=== PATIENT | male | born 1965 | race Hispanic/Latino ===

== ENCOUNTER 2020-10-21 18:33 | Inpatient (IN) | payer OTHER ==
[~2020-10-21] VITALS: Ht 170.2 cm; Wt 84.1 kg
[~2020-10-21 18:33] MED LIST: ACET1TAB12 PO; GABA-529 PO
[2020-10-21 19:19] LABS: ABG BASE EXCESS -3.8 mmol/L (-2.0-3.0); ABG HCO3 18.6 mmol/L (21.0-28.0); ABG OXYGEN SATURATION 89.8 % (95.0-99.0); ABG PCO2 27 mmHg (35-48)
[2020-10-21 19:24] LABS: BASOPHILS % (AUTO) 0.3 % (0.0-5.0); EOSINOPHILS % (AUTO) 10.7 % (0.0-8.0); LYMPHOCYTES % (AUTO) 7.4 % (21.0-51.0); MEAN CORPUSCULAR HGB CONC 31.9 g/dL (32.0-36.0); MEAN CORPUSCULAR VOLUME 97.2 fL (79-99); NEUTROPHILS % (AUTO) 73.9 % (40.0-77.0); PLATELET COUNT (AUTO) 436 K/uL (130-400); RED BLOOD CELL COUNT(AUTO) 1.42 MIL/uL (4.50-6.20); WHITE BLOOD COUNT (AUTO) 11.7 K/uL (4.8-10.8)
[2020-10-21 19:27] LABS: CREATININE 5.1 mg/dL (0.5-1.5); POTASSIUM 4.1 mmol/L (3.5-5.1)
[2020-10-21 19:32] LABS: BILIRUBIN,TOTAL 0.8 mg/dL (0.2-1.0); MAGNESIUM 2.5 mg/dL (1.80-2.40); TOTAL PROTEIN, SERUM 7.6 g/dL (6.0-8.3)
[2020-10-21 20:00] LABS: CREATINE KINASE, TOTAL 17 U/L (21-232); MYOGLOBIN 92 ng/mL (10-92); TROPONIN I < 0.04 ng/mL (0.00-0.06)
[2020-10-21 20:06] LABS: B-TYPE NATRIURETIC PEPTIDE 328 pg/mL (0-100)
[2020-10-21 20:07] LABS: HEMATOCRIT 13.8 % (42-54)
[2020-10-21 20:25] LABS: INR 1.12 (0.85-1.15); PROTHROMBIN TIME 11.9 SEC (9.6-11.6)
[2020-10-21 20:27] LABS: PARTIAL THROMBOPLASTIN TIME 30.3 SEC (26.3-35.5)
[2020-10-21] MEDS ORDERED: ZOSYN 3.375GM+NS 50ML 50 ML IV ONE (21:08)
[2020-10-21] MEDS ORDERED: VANCOMYCIN 1GM+NS 250ML 250 ML IV ONE (21:08)
[2020-10-21 21:57] LABS: APPEARANCE,URINE Clear (CLEAR); BILIRUBIN,URINE Negative (NEGATIVE); COLOR,URINE Yellow (YELLOW); GLUCOSE, URINE (UA) Negative (NEGATIVE); KETONES,URINE Negative (NEGATIVE); LEUKOCYTE ESTERASE ,URINE Trace (NEGATIVE); NITRATE,URINE Negative (NEGATIVE); OCCULT BLOOD,URINE Large (NEGATIVE); PROTEIN,URINE 300 mg/dL (NEGATIVE); UROBILINOGEN,URINE 0.2 mg/dL (0.2-1.0)
[2020-10-21 22:05] LABS: BACTERIA,URINE Few /HPF (None Seen)
[2020-10-21 22:06] LABS: SQUAMOUS EPITHELIAL CELL,UR None Seen /HPF (0-2)
[2020-10-21] MEDS ORDERED: SODIUM CHLORIDE 0.9% 250 ML IV ONE (23:26)
[2020-10-22] MEDS ORDERED: ACETAMINOPHEN 325 MG TAB ONE (00:33)
[2020-10-22] MEDS ORDERED: DOXYCYCLINE HYCLATE 100 MG TABLET PO ONE ×2 (03:17→18:19)
[2020-10-22] MEDS ORDERED: CEFTRIAXONE SODIUM 1 GM ONE (03:17)
[2020-10-22] MEDS ORDERED: ONDANSETRON ODT 4 MG TAB PO PRN (05:45)
[2020-10-22] MEDS: PANTOPRAZOLE SODIUM 40 MG TABLET.DR PO SCH ×2 (09:00→21:00)
[2020-10-22] MEDS: DOXYCYCLINE HYCLATE 100 MG TABLET PO SCH ×2 (09:00→21:00)
[2020-10-22 09:02] LABS: BASOPHILS % (AUTO) 0.3 % (0.0-5.0); EOSINOPHILS % (AUTO) 11.7 % (0.0-8.0); HEMATOCRIT 21.7 % (42-54); LYMPHOCYTES % (AUTO) 6.8 % (21.0-51.0); MEAN CORPUSCULAR HEMOGLOBIN 29.5 pg (27.0-33.0); MEAN CORPUSCULAR HGB CONC 32.7 g/dL (32.0-36.0); MONOCYTES % (AUTO) 6.1 % (3.0-13.0); NEUTROPHILS % (AUTO) 74.7 % (40.0-77.0); PLATELET COUNT (AUTO) 384 K/uL (130-400); RED BLOOD CELL COUNT(AUTO) 2.41 MIL/uL (4.50-6.20); RED CELL DISTRIBUTION WIDTH 16.2 % (11.0-15.5); WHITE BLOOD COUNT (AUTO) 11.5 K/uL (4.8-10.8)
[2020-10-22 09:58] LABS: ALBUMIN 2.8 g/dL (3.5-5.0); BILIRUBIN,TOTAL 0.9 mg/dL (0.2-1.0); CREATININE 4.9 mg/dL (0.5-1.5); MAGNESIUM 2.1 mg/dL (1.80-2.40); POTASSIUM 4.1 mmol/L (3.5-5.1); TOTAL PROTEIN, SERUM 7.2 g/dL (6.0-8.3)
[2020-10-22] MEDS ORDERED: PANTOPRAZOLE SODIUM 40 MG TABLET.DR ONE (10:01)
[2020-10-22 10:58] LABS: HEMOGLOBIN A1C 4.6 % (4.0-6.0)
[2020-10-22] MEDS ORDERED: VITA0.4T5 PO (14:09)
[2020-10-22] MEDS ORDERED: APIX2.5T PO (14:09)
[2020-10-22] MEDS ORDERED: SEVE800T27 PO (14:09)
[2020-10-22] MEDS ORDERED: MIDO5TAB4 PO (14:09)
[2020-10-22] MEDS ORDERED: CHOL500051 PO (14:09)
[2020-10-22] MEDS ORDERED: FERS325 PO (14:09)
[2020-10-22 18:29] LABS: HEMATOCRIT 20.7 % (42-54)
[2020-10-22] MEDS ORDERED: SODIUM CHLORIDE 0.9% 250 ML IV ONE (22:41)
[2020-10-23] MEDS ORDERED: ONDANSETRON HCL 4 MG/2 ML VIAL IVP PRN (02:15)
[2020-10-23] MEDS: CEFTRIAXONE SODIUM 1 GM IVP SCH (03:00)
[2020-10-23 04:00] LABS: HEMATOCRIT 21.5 % (42-54)
[2020-10-23] MEDS ORDERED: CEFTRIAXONE SODIUM 1 GM ONE ×2 (04:24→11:58)
[2020-10-23] MEDS ORDERED: DOXYCYCLINE HYCLATE 100 MG TABLET PO ONE (04:24)
[2020-10-23] MEDS ORDERED: PANTOPRAZOLE 40 MG/VIAL ONE ×3 (04:24→20:20)
[2020-10-23] MEDS: PANTOPRAZOLE SODIUM 40 MG TABLET.DR PO SCH ×2 (09:00→21:09)
[2020-10-23] MEDS: DOXYCYCLINE HYCLATE 100 MG TABLET PO SCH ×2 (09:00→21:09)
[2020-10-23 12:04] LABS: HEMATOCRIT 19.7 % (42-54)
[2020-10-23 12:59] LABS: PROTEIN,URINE RANDOM 229.8 mg/dL (0-11.9)
[2020-10-23] MEDS ORDERED: PANTOPRAZOLE SODIUM 80 MG in NS 100ML IVP SCH (14:30)
[2020-10-23] MEDS: METHYLPREDNISOLONE SOD SUCC 40MG/ML 1ML IVP SCH ×2 (15:00→21:44)
[2020-10-23] MEDS ORDERED: METHYLPREDNISOLONE SOD SUCC 40MG/ML 1ML ONE (15:01)
[2020-10-23] MEDS: IPRATROPIUM/ALBUTEROL SULFATE 3 ML SOLUTION IH SCH (18:38)
[2020-10-23 19:32] LABS: HEMATOCRIT 19.5 % (42-54)
[2020-10-23] MEDS ORDERED: DEXTROSE 5%-WATER 100 ML IV ONE (20:22)
[2020-10-23 20:40] VITALS: BP 100/59
[2020-10-23 20:45] VITALS: BP 120/66
[2020-10-23] MEDS ORDERED: LORAZEPAM 2 MG/ML 1 ML VIAL ONE (21:36)
[2020-10-23] MEDS ORDERED: LORAZEPAM 2 MG/ML 1 ML VIAL IVP ONE (21:45)
[2020-10-23 23:06] VITALS: BP 106/56
[2020-10-23 23:37] VITALS: BP 100/57
[2020-10-24 00:27] VITALS: BP 112/80
[2020-10-24] MEDS: CEFTRIAXONE SODIUM 1 GM IVP SCH (02:16)
[2020-10-24 04:03] VITALS: BP 105/60
[2020-10-24] MEDS ORDERED: LORAZEPAM 2 MG/ML 1 ML VIAL ONE (04:44)
[2020-10-24] MEDS ORDERED: LORAZEPAM 2 MG/ML 1 ML VIAL IVP PRN (05:00)
[2020-10-24] MEDS: IPRATROPIUM/ALBUTEROL SULFATE 3 ML SOLUTION IH SCH ×3 (06:58→17:12)
[2020-10-24 07:29] VITALS: BP 112/61
[2020-10-24] MEDS ORDERED: HALOPERIDOL LACTATE 5 MG/ML VIAL IM SCH (08:34)
[2020-10-24] MEDS: DOXYCYCLINE HYCLATE 100 MG TABLET PO SCH ×2 (09:59→21:34)
[2020-10-24] MEDS: PANTOPRAZOLE SODIUM 40 MG TABLET.DR PO SCH ×2 (09:59→21:34)
[2020-10-24] MEDS: METHYLPREDNISOLONE SOD SUCC 40MG/ML 1ML IVP SCH ×3 (09:59→21:34)
[2020-10-24 10:42] VITALS: BP 104/71
[2020-10-24] MEDS ORDERED: IOHEXOL-350 50ML VIAL IV ONE ×2 (10:55→11:19)
[2020-10-24] MEDS ORDERED: MIDAZOLAM HCL 1 MG/ML 2ML VIAL ONE (10:56)
[2020-10-24] MEDS ORDERED: FENTANYL CITRATE PF 50 MCG/1 ML 2ML VIAL ONE (10:56)
[2020-10-24] MEDS ORDERED: LIDOCAINE HCL 1% MDV 50ML VIAL ONE (10:56)
[2020-10-24 12:00] LABS: CREATININE 4.9 mg/dL (0.5-1.5); POTASSIUM 4.1 mmol/L (3.5-5.1)
[2020-10-24 12:09] LABS: ABG BASE EXCESS -11.6 mmol/L (-2.0-3.0); ABG HCO3 12.6 mmol/L (21.0-28.0); ABG OXYGEN SATURATION 99.3 % (95.0-99.0); ABG PCO2 25 mmHg (35-48)
[2020-10-24] MEDS ORDERED: PHARMACY COMMUNICATION MISC STA (13:30)
[2020-10-24] MEDS ORDERED: COMPOUND IV REFRIGERATED 1 EACH IVSOLN MISC PRN (14:00)
[2020-10-24] MEDS: SODIUM BICARBONATE 650 MG TAB PO SCH ×2 (14:00→21:34)
[2020-10-24] MEDS ORDERED: SODIUM CHLORIDE 0.9% 1000ML 1,000 ML IV ONE (14:39)
[2020-10-24 15:46] VITALS: BP 116/70
[2020-10-24] MEDS ORDERED: SODIUM BICARB 50MEQ 50ML VIAL IV SCH (15:50)
[2020-10-24] MEDS: SODIUM BICARB 50MEQ 50ML VIAL 150 MEQ in DEXTROSE 5%-WATER 1,000 ML IV SCH (15:58)
[2020-10-24 18:58] LABS: HEMATOCRIT 20.7 % (42-54)
[2020-10-24 20:00] VITALS: BP 103/61
[2020-10-24] MEDS ORDERED: SODIUM CHLORIDE 0.9% 250 ML IV ONE (23:54)
[2020-10-25] VITALS (23 sets, daily range): BP systolic 87–120; BP diastolic 44–79
[2020-10-25] MEDS: CEFTRIAXONE SODIUM 1 GM IVP SCH (03:47)
[2020-10-25] MEDS: SODIUM BICARB 50MEQ 50ML VIAL 150 MEQ in DEXTROSE 5%-WATER 1,000 ML IV SCH (05:37)
[2020-10-25 05:43] LABS: BASOPHILS % (AUTO) 0.1 % (0.0-5.0); HEMATOCRIT 23.9 % (42-54); LYMPHOCYTES % (AUTO) 1.6 % (21.0-51.0); MEAN CORPUSCULAR HEMOGLOBIN 29.1 pg (27.0-33.0); MEAN CORPUSCULAR HGB CONC 33.9 g/dL (32.0-36.0); MONOCYTES % (AUTO) 3.9 % (3.0-13.0); NEUTROPHILS % (AUTO) 93.9 % (40.0-77.0); PLATELET COUNT (AUTO) 414 K/uL (130-400); RED BLOOD CELL COUNT(AUTO) 2.78 MIL/uL (4.50-6.20); RED CELL DISTRIBUTION WIDTH 15.2 % (11.0-15.5); WHITE BLOOD COUNT (AUTO) 13.4 K/uL (4.8-10.8)
[2020-10-25 05:53] LABS: ALBUMIN 2.4 g/dL (3.5-5.0); BILIRUBIN,TOTAL 1.3 mg/dL (0.2-1.0); CREATININE 4.8 mg/dL (0.5-1.5); MAGNESIUM 2.3 mg/dL (1.80-2.40); POTASSIUM 4.1 mmol/L (3.5-5.1); TOTAL PROTEIN, SERUM 6.4 g/dL (6.0-8.3)
[2020-10-25 05:58] LABS: B-TYPE NATRIURETIC PEPTIDE 1130 pg/mL (0-100)
[2020-10-25] MEDS: IPRATROPIUM/ALBUTEROL SULFATE 3 ML SOLUTION IH SCH ×5 (06:00→23:22)
[2020-10-25] MEDS: METHYLPREDNISOLONE SOD SUCC 40MG/ML 1ML IVP SCH ×3 (06:13→22:17)
[2020-10-25 06:43] LABS: % IRON SATURATION 36.2 % (30-44)
[2020-10-25 07:27] LABS: ABG BASE EXCESS -4.7 mmol/L (-2.0-3.0); ABG HCO3 19.4 mmol/L (21.0-28.0); ABG OXYGEN SATURATION 98.9 % (95.0-99.0); ABG PCO2 34 mmHg (35-48)
[2020-10-25] MEDS: PANTOPRAZOLE SODIUM 40 MG TABLET.DR PO SCH ×2 (09:00→20:28)
[2020-10-25] MEDS: SODIUM BICARBONATE 650 MG TAB PO SCH ×3 (09:00→20:29)
[2020-10-25] MEDS: DOXYCYCLINE HYCLATE 100 MG TABLET PO SCH ×2 (09:00→20:29)
[2020-10-25] MEDS ORDERED: SODIUM CHLORIDE 0.9% 1000ML 1,000 ML IV ONE (09:32)
[2020-10-25] MEDS ORDERED: PROPOFOL 10 MG/ML 20ML VIAL IV ONE (10:22)
[2020-10-25] MEDS ORDERED: LIDOCAINE HCL 2% 20ML ONE (10:22)
[2020-10-25] MEDS ORDERED: IODIXANOL 320 MG/ML 100 ML VIAL ONE (11:54)
[2020-10-25] MEDS ORDERED: LIDOCAINE HCL 1% MDV 50ML VIAL ONE (11:55)
[2020-10-26] VITALS (7 sets, daily range): BP systolic 92–113; BP diastolic 61–71
[2020-10-26] MEDS: CEFTRIAXONE SODIUM 1 GM IVP SCH (02:15)
[2020-10-26 04:19] LABS: BASOPHILS % (AUTO) 0.1 % (0.0-5.0); HEMATOCRIT 24.8 % (42-54); LYMPHOCYTES % (AUTO) 2.7 % (21.0-51.0); MEAN CORPUSCULAR HEMOGLOBIN 29.1 pg (27.0-33.0); MEAN CORPUSCULAR HGB CONC 33.5 g/dL (32.0-36.0); MONOCYTES % (AUTO) 3.4 % (3.0-13.0); NEUTROPHILS % (AUTO) 93.3 % (40.0-77.0); PLATELET COUNT (AUTO) 403 K/uL (130-400); RED BLOOD CELL COUNT(AUTO) 2.85 MIL/uL (4.50-6.20); RED CELL DISTRIBUTION WIDTH 15.9 % (11.0-15.5)
[2020-10-26 04:37] LABS: CREATININE 4.8 mg/dL (0.5-1.5); MAGNESIUM 2.4 mg/dL (1.80-2.40); PHOSPHORUS 5.2 mg/dL (2.5-4.9)
[2020-10-26] MEDS: METHYLPREDNISOLONE SOD SUCC 40MG/ML 1ML IVP SCH ×2 (05:41→17:42)
[2020-10-26] MEDS: IPRATROPIUM/ALBUTEROL SULFATE 3 ML SOLUTION IH SCH ×3 (06:42→19:15)
[2020-10-26 07:29] LABS: CREATININE,SERUM FOR CRCL 4.8 mg/dL (0.6-1.3)
[2020-10-26 07:30] LABS: COLLECTION PERIOD,URINE 24 HR; TOTAL VOLUME 24HRS,URINE 1700 mL
[2020-10-26 07:32] LABS: TPROTEIN TIMED,URINE 125 mg/dL; TPROTEIN U,24HR CALC 2125 mg/24HR (0-165)
[2020-10-26 08:26] LABS: ABG OXYGEN SATURATION 94.6 % (95.0-99.0); ABG PCO2 32 mmHg (35-48)
[2020-10-26] MEDS: PANTOPRAZOLE SODIUM 40 MG TABLET.DR PO SCH ×2 (11:35→20:54)
[2020-10-26] MEDS: SODIUM BICARBONATE 650 MG TAB PO SCH ×3 (11:35→20:54)
[2020-10-26] MEDS: LACTULOSE 20 GM/30 ML UDCUP PO SCH (11:35)
[2020-10-26] MEDS: DOXYCYCLINE HYCLATE 100 MG TABLET PO SCH ×2 (11:35→20:54)
[2020-10-26] MEDS ORDERED: LACTULOSE 20 GM/30 ML UDCUP PO SCH (15:00)
[2020-10-26] MEDS ORDERED: PEG 3350/NA SULF,BICARB,CL/KCL 4000 ML SOLN PO SCH (16:00)
[2020-10-26] MEDS: SEVELAMER HCL 800 MG TABLET PO SCH (17:36)
[2020-10-26] MEDS: ACETAMINOPHEN 325 MG TAB PO PRN (17:45)
[2020-10-26] MEDS ORDERED: BISACODYL 5 MG TABLET.DR PO SCH (18:00)
[2020-10-26] MEDS: MIDODRINE HCL 5 MG TABLET PO SCH (20:54)
[2020-10-27] VITALS (18 sets, daily range): BP systolic 108–147; BP diastolic 45–95
[2020-10-27] MEDS: CEFTRIAXONE SODIUM 1 GM IVP SCH (03:15)
[2020-10-27 04:03] LABS: HEMATOCRIT 25.9 % (42-54); MEAN CORPUSCULAR HEMOGLOBIN 28.5 pg (27.0-33.0); MEAN CORPUSCULAR HGB CONC 32.4 g/dL (32.0-36.0); MEAN CORPUSCULAR VOLUME 87.8 fL (79-99); RED BLOOD CELL COUNT(AUTO) 2.95 MIL/uL (4.50-6.20); RED CELL DISTRIBUTION WIDTH 15.7 % (11.0-15.5); WHITE BLOOD COUNT (AUTO) 8.1 K/uL (4.8-10.8)
[2020-10-27 04:15] LABS: CREATININE 4.5 mg/dL (0.5-1.5); POTASSIUM 4.4 mmol/L (3.5-5.1)
[2020-10-27] MEDS: METHYLPREDNISOLONE SOD SUCC 40MG/ML 1ML IVP SCH ×2 (05:41→22:42)
[2020-10-27] MEDS: IPRATROPIUM/ALBUTEROL SULFATE 3 ML SOLUTION IH SCH ×3 (06:55→18:51)
[2020-10-27] MEDS: PANTOPRAZOLE SODIUM 40 MG TABLET.DR PO SCH ×2 (08:55→22:42)
[2020-10-27] MEDS: MIDODRINE HCL 5 MG TABLET PO SCH ×3 (08:55→22:42)
[2020-10-27] MEDS: DOXYCYCLINE HYCLATE 100 MG TABLET PO SCH ×2 (08:55→22:42)
[2020-10-27] MEDS: LACTULOSE 20 GM/30 ML UDCUP PO SCH (08:55)
[2020-10-27] MEDS: SEVELAMER HCL 800 MG TABLET PO SCH ×3 (08:55→17:36)
[2020-10-27] MEDS: SODIUM BICARBONATE 650 MG TAB PO SCH ×3 (08:55→22:42)
[2020-10-27] MEDS ORDERED: PROPOFOL 10 MG/ML 20ML VIAL IV ONE ×2 (13:22→13:34)
[2020-10-28 00:16] VITALS: BP 118/73
[2020-10-28] MEDS: IPRATROPIUM/ALBUTEROL SULFATE 3 ML SOLUTION IH SCH ×5 (01:36→23:58)
[2020-10-28] MEDS: CEFTRIAXONE SODIUM 1 GM IVP SCH (03:22)
[2020-10-28 04:20] VITALS: BP 111/54
[2020-10-28 08:04] VITALS: BP 114/51
[2020-10-28] MEDS: LACTULOSE 20 GM/30 ML UDCUP PO SCH (08:12)
[2020-10-28] MEDS: SEVELAMER HCL 800 MG TABLET PO SCH ×3 (08:33→16:17)
[2020-10-28] MEDS: SODIUM BICARBONATE 650 MG TAB PO SCH ×3 (08:33→22:56)
[2020-10-28] MEDS: MIDODRINE HCL 5 MG TABLET PO SCH ×3 (08:34→22:56)
[2020-10-28] MEDS: PANTOPRAZOLE SODIUM 40 MG TABLET.DR PO SCH (08:34)
[2020-10-28] MEDS: METHYLPREDNISOLONE SOD SUCC 40MG/ML 1ML IVP SCH (08:34)
[2020-10-28] MEDS: DOXYCYCLINE HYCLATE 100 MG TABLET PO SCH ×2 (08:34→22:56)
[2020-10-28 11:06] VITALS: BP 114/71
[2020-10-28 15:45] VITALS: BP 127/68
[2020-10-28 21:37] VITALS: BP 107/59
[2020-10-28] MEDS: CARVEDILOL 3.125 MG TABLET PO SCH (22:56)
[2020-10-29] VITALS: BP 123/71
[2020-10-29 03:22] LABS: ABG BASE EXCESS -3.9 mmol/L (-2.0-3.0); ABG HCO3 19.9 mmol/L (21.0-28.0); ABG OXYGEN SATURATION 93.1 % (95.0-99.0); ABG PCO2 33 mmHg (35-48)
[2020-10-29] MEDS: CEFTRIAXONE SODIUM 1 GM IVP SCH (03:31)
[2020-10-29 03:59] LABS: EOSINOPHILS % (AUTO) 1.9 % (0.0-8.0); HEMATOCRIT 24.1 % (42-54); LYMPHOCYTES % (AUTO) 8.7 % (21.0-51.0); MEAN CORPUSCULAR HEMOGLOBIN 28.6 pg (27.0-33.0); MEAN CORPUSCULAR VOLUME 89.6 fL (79-99); MONOCYTES % (AUTO) 7.1 % (3.0-13.0); NEUTROPHILS % (AUTO) 81.6 % (40.0-77.0); PLATELET COUNT (AUTO) 414 K/uL (130-400); RED BLOOD CELL COUNT(AUTO) 2.69 MIL/uL (4.50-6.20); RED CELL DISTRIBUTION WIDTH 15.3 % (11.0-15.5); WHITE BLOOD COUNT (AUTO) 9.8 K/uL (4.8-10.8)
[2020-10-29 04:00] VITALS: BP 107/65
[2020-10-29 04:14] LABS: ALBUMIN 2.4 g/dL (3.5-5.0); BILIRUBIN,TOTAL 1.3 mg/dL (0.2-1.0); CREATININE 3.9 mg/dL (0.5-1.5); MAGNESIUM 2.2 mg/dL (1.80-2.40); PHOSPHORUS 5.8 mg/dL (2.5-4.9); POTASSIUM 3.9 mmol/L (3.5-5.1); TOTAL PROTEIN, SERUM 5.8 g/dL (6.0-8.3)
[2020-10-29 04:19] LABS: B-TYPE NATRIURETIC PEPTIDE 741 pg/mL (0-100)
[2020-10-29] MEDS: ACETAMINOPHEN 325 MG TAB PO PRN (04:36)
[2020-10-29] MEDS: IPRATROPIUM/ALBUTEROL SULFATE 3 ML SOLUTION IH SCH ×3 (06:21→18:48)
[2020-10-29] MEDS: SODIUM BICARBONATE 650 MG TAB PO SCH ×3 (07:55→20:56)
[2020-10-29] MEDS: FUROSEMIDE 40 MG TABLET PO SCH (07:56)
[2020-10-29] MEDS: SEVELAMER HCL 800 MG TABLET PO SCH ×3 (07:56→16:05)
[2020-10-29] MEDS: MIDODRINE HCL 5 MG TABLET PO SCH (07:56)
[2020-10-29] MEDS: DOXYCYCLINE HYCLATE 100 MG TABLET PO SCH ×2 (07:56→20:56)
[2020-10-29 08:32] VITALS: BP 114/65
[2020-10-29] MEDS: CARVEDILOL 3.125 MG TABLET PO SCH ×2 (09:20→20:56)
[2020-10-29 11:56] VITALS: BP 106/60
[2020-10-29 15:40] VITALS: BP 107/51
[2020-10-29] MEDS ORDERED: FUROSEMIDE 40 MG TABLET PO SCH (16:00)
[2020-10-29 21:10] VITALS: BP 114/62
[2020-10-30] MEDS: IPRATROPIUM/ALBUTEROL SULFATE 3 ML SOLUTION IH SCH ×5 (00:23→23:51)
[2020-10-30 00:29] VITALS: BP 99/62
[2020-10-30] MEDS: CEFTRIAXONE SODIUM 1 GM IVP SCH (03:33)
[2020-10-30 04:22] VITALS: BP 103/67
[2020-10-30] MEDS: SEVELAMER HCL 800 MG TABLET PO SCH ×3 (07:42→16:15)
[2020-10-30] MEDS: SODIUM BICARBONATE 650 MG TAB PO SCH ×3 (07:43→22:23)
[2020-10-30] MEDS: FUROSEMIDE 40 MG TABLET PO SCH (07:43)
[2020-10-30] MEDS: CARVEDILOL 3.125 MG TABLET PO SCH ×2 (07:44→22:23)
[2020-10-30] MEDS: DOXYCYCLINE HYCLATE 100 MG TABLET PO SCH ×2 (07:44→22:23)
[2020-10-30 08:37] VITALS: BP 107/56
[2020-10-30 11:32] VITALS: BP 106/63
[2020-10-30] MEDS: ISOSORBIDE MONO 30MG TAB SR PO SCH (12:29)
[2020-10-30] MEDS: HYDRALAZINE HCL 10 MG TABLET PO SCH ×2 (12:29→22:24)
[2020-10-30 16:00] VITALS: BP 119/67
[2020-10-30] MEDS: ACETAMINOPHEN 325 MG TAB PO PRN (22:35)
[2020-10-30 23:09] VITALS: BP 117/75
[2020-10-31 01:16] VITALS: BP 90/50
[2020-10-31] MEDS: CEFTRIAXONE SODIUM 1 GM IVP SCH (03:24)
[2020-10-31 04:02] LABS: HEMATOCRIT 25.4 % (42-54); MEAN CORPUSCULAR HEMOGLOBIN 28.2 pg (27.0-33.0); MEAN CORPUSCULAR HGB CONC 30.7 g/dL (32.0-36.0); MEAN CORPUSCULAR VOLUME 91.7 fL (79-99); RED BLOOD CELL COUNT(AUTO) 2.77 MIL/uL (4.50-6.20); RED CELL DISTRIBUTION WIDTH 15.3 % (11.0-15.5); WHITE BLOOD COUNT (AUTO) 7.1 K/uL (4.8-10.8)
[2020-10-31 04:05] VITALS: BP 93/49
[2020-10-31 04:42] LABS: CREATININE 3.7 mg/dL (0.5-1.5); MAGNESIUM 1.7 mg/dL (1.80-2.40); POTASSIUM 3.9 mmol/L (3.5-5.1)
[2020-10-31] MEDS: IPRATROPIUM/ALBUTEROL SULFATE 3 ML SOLUTION IH SCH ×4 (06:42→23:45)
[2020-10-31 08:00] VITALS: BP 102/66
[2020-10-31] MEDS ORDERED: MAGNESIUM 2GM PREMIX 50ML 50 ML IV SCH (10:30)
[2020-10-31] MEDS: DOXYCYCLINE HYCLATE 100 MG TABLET PO SCH ×2 (11:35→21:13)
[2020-10-31] MEDS: SODIUM BICARBONATE 650 MG TAB PO SCH ×3 (11:35→21:13)
[2020-10-31] MEDS: ISOSORBIDE MONO 30MG TAB SR PO SCH (11:35)
[2020-10-31] MEDS: CARVEDILOL 3.125 MG TABLET PO SCH ×2 (11:36→21:00)
[2020-10-31] MEDS: HYDRALAZINE HCL 10 MG TABLET PO SCH ×2 (11:36→21:00)
[2020-10-31] MEDS: FUROSEMIDE 40 MG TABLET PO SCH (11:37)
[2020-10-31] MEDS: SEVELAMER HCL 800 MG TABLET PO SCH ×3 (11:37→17:00)
[2020-10-31 12:00] VITALS: BP 119/70
[2020-10-31 17:00] VITALS: BP 102/55
[2020-10-31 20:00] VITALS: BP 100/57
[2020-10-31] MEDS: ACETAMINOPHEN 325 MG TAB PO PRN (21:12)
[2020-11-01] VITALS (7 sets, daily range): BP systolic 103–126; BP diastolic 48–66
[2020-11-01] MEDS: CEFTRIAXONE SODIUM 1 GM IVP SCH (02:29)
[2020-11-01 03:58] LABS: HEMATOCRIT 25.9 % (42-54); MEAN CORPUSCULAR HEMOGLOBIN 28.3 pg (27.0-33.0); MEAN CORPUSCULAR HGB CONC 31.3 g/dL (32.0-36.0); MEAN CORPUSCULAR VOLUME 90.6 fL (79-99); RED BLOOD CELL COUNT(AUTO) 2.86 MIL/uL (4.50-6.20); RED CELL DISTRIBUTION WIDTH 15.2 % (11.0-15.5); WHITE BLOOD COUNT (AUTO) 7.9 K/uL (4.8-10.8)
[2020-11-01 04:21] LABS: CREATININE 3.6 mg/dL (0.5-1.5); POTASSIUM 3.3 mmol/L (3.5-5.1)
[2020-11-01] MEDS: IPRATROPIUM/ALBUTEROL SULFATE 3 ML SOLUTION IH SCH ×3 (07:21→18:28)
[2020-11-01] MEDS: HYDRALAZINE HCL 10 MG TABLET PO SCH ×2 (09:00→20:14)
[2020-11-01] MEDS ORDERED: METHYLPREDNISOLONE SOD SUCC 125MG/2ML VIAL IVP SCH (10:30)
[2020-11-01] MEDS: SEVELAMER HCL 800 MG TABLET PO SCH ×3 (11:09→16:53)
[2020-11-01] MEDS: CARVEDILOL 3.125 MG TABLET PO SCH ×2 (11:10→20:14)
[2020-11-01] MEDS: SODIUM BICARBONATE 650 MG TAB PO SCH ×3 (11:10→20:13)
[2020-11-01] MEDS: ISOSORBIDE MONO 30MG TAB SR PO SCH (11:10)
[2020-11-01] MEDS: DOXYCYCLINE HYCLATE 100 MG TABLET PO SCH ×2 (11:11→20:14)
[2020-11-01] MEDS: PANTOPRAZOLE SODIUM 40 MG TABLET.DR PO SCH (11:11)
[2020-11-01] MEDS: FUROSEMIDE 40 MG TABLET PO SCH (11:11)
[2020-11-01] MEDS ORDERED: METHYLPREDNISOLONE SOD SUCC 125MG/2ML VIAL ONE (16:56)
[2020-11-01] MEDS: METHYLPREDNISOLONE SOD SUCC 125MG/2ML VIAL IVP SCH (16:57)
[2020-11-02] VITALS (10 sets, daily range): BP systolic 94–119; BP diastolic 50–77
[2020-11-02] MEDS: IPRATROPIUM/ALBUTEROL SULFATE 3 ML SOLUTION IH SCH ×4 (00:01→19:14)
[2020-11-02] MEDS: CEFTRIAXONE SODIUM 1 GM IVP SCH (02:11)
[2020-11-02] MEDS: METHYLPREDNISOLONE SOD SUCC 125MG/2ML VIAL IVP SCH ×3 (02:11→17:21)
[2020-11-02] MEDS: ACETAMINOPHEN 325 MG TAB PO PRN (02:22)
[2020-11-02 05:20] LABS: BASOPHILS % (AUTO) 0.2 % (0.0-5.0); EOSINOPHILS % (AUTO) 0.2 % (0.0-8.0); HEMATOCRIT 25.6 % (42-54); LYMPHOCYTES % (AUTO) 4.9 % (21.0-51.0); MEAN CORPUSCULAR HEMOGLOBIN 28.7 pg (27.0-33.0); MEAN CORPUSCULAR HGB CONC 32.4 g/dL (32.0-36.0); MEAN CORPUSCULAR VOLUME 88.6 fL (79-99); NEUTROPHILS % (AUTO) 93.1 % (40.0-77.0); PLATELET COUNT (AUTO) 324 K/uL (130-400); RED BLOOD CELL COUNT(AUTO) 2.89 MIL/uL (4.50-6.20); RED CELL DISTRIBUTION WIDTH 14.7 % (11.0-15.5); WHITE BLOOD COUNT (AUTO) 4.9 K/uL (4.8-10.8)
[2020-11-02 05:32] LABS: INR 1.07 (0.85-1.15); PROTHROMBIN TIME 11.4 SEC (9.6-11.6)
[2020-11-02 05:33] LABS: PARTIAL THROMBOPLASTIN TIME 26.5 SEC (26.3-35.5)
[2020-11-02 05:37] LABS: ALBUMIN 2.8 g/dL (3.5-5.0); BILIRUBIN,TOTAL 0.9 mg/dL (0.2-1.0); CREATININE 3.8 mg/dL (0.5-1.5); POTASSIUM 4.1 mmol/L (3.5-5.1); TOTAL PROTEIN, SERUM 6.8 g/dL (6.0-8.3)
[2020-11-02] MEDS: SEVELAMER HCL 800 MG TABLET PO SCH ×3 (08:00→17:21)
[2020-11-02] MEDS: FUROSEMIDE 40 MG TABLET PO SCH (09:00)
[2020-11-02] MEDS: PANTOPRAZOLE SODIUM 40 MG TABLET.DR PO SCH (09:00)
[2020-11-02] MEDS: HYDRALAZINE HCL 10 MG TABLET PO SCH ×2 (09:00→20:08)
[2020-11-02] MEDS: CARVEDILOL 3.125 MG TABLET PO SCH ×2 (09:00→20:07)
[2020-11-02] MEDS: SODIUM BICARBONATE 650 MG TAB PO SCH ×3 (09:00→20:07)
[2020-11-02] MEDS: DOXYCYCLINE HYCLATE 100 MG TABLET PO SCH ×2 (09:00→20:07)
[2020-11-02] MEDS: ISOSORBIDE MONO 30MG TAB SR PO SCH (09:00)
[2020-11-02] MEDS ORDERED: ISOS30TA6 PO (09:41)
[2020-11-02] MEDS ORDERED: FURO40TA5 PO (09:41)
[2020-11-02] MEDS ORDERED: CARV6.2579 PO (09:41)
[2020-11-02] MEDS ORDERED: HYDR-3420 PO (09:41)
[2020-11-02] MEDS ORDERED: OMEP40CA13 PO (09:49)
[2020-11-02] MEDS ORDERED: FENTANYL CITRATE PF 50 MCG/1 ML 2ML VIAL ONE (10:21)
[2020-11-02] MEDS ORDERED: MIDAZOLAM HCL 1 MG/ML 2ML VIAL ONE (10:21)
[2020-11-02] MEDS ORDERED: REGADENOSON 0.4 MG/5 ML PF SYG IVP SCH (11:15)
[2020-11-03] MEDS: IPRATROPIUM/ALBUTEROL SULFATE 3 ML SOLUTION IH SCH ×3 (00:46→11:05)
[2020-11-03] MEDS: CEFTRIAXONE SODIUM 1 GM IVP SCH (02:12)
[2020-11-03] MEDS: METHYLPREDNISOLONE SOD SUCC 125MG/2ML VIAL IVP SCH ×2 (02:12→10:27)
[2020-11-03 02:59] VITALS: BP 92/61
[2020-11-03 03:16] LABS: APPEARANCE,URINE Clear (CLEAR); BILIRUBIN,URINE Negative (NEGATIVE); COLOR,URINE Yellow (YELLOW); GLUCOSE, URINE (UA) Negative (NEGATIVE); KETONES,URINE Negative (NEGATIVE); LEUKOCYTE ESTERASE ,URINE Negative (NEGATIVE); NITRATE,URINE Negative (NEGATIVE); OCCULT BLOOD,URINE Moderate (NEGATIVE); PROTEIN,URINE POS 2+ mg/dL (NEGATIVE); UROBILINOGEN,URINE 0.2 mg/dL (0.2-1.0)
[2020-11-03 04:29] LABS: BACTERIA,URINE Few /HPF (None Seen); WBC,URINE 0-1 /HPF (0-1)
[2020-11-03 04:30] LABS: SQUAMOUS EPITHELIAL CELL,UR 0-2 /HPF (0-2); YEAST,URINE BUDDING Moderate /HPF (None Seen)
[2020-11-03 04:42] LABS: HEMATOCRIT 25.3 % (42-54); MEAN CORPUSCULAR HEMOGLOBIN 28.6 pg (27.0-33.0); MEAN CORPUSCULAR VOLUME 89.4 fL (79-99); RED BLOOD CELL COUNT(AUTO) 2.83 MIL/uL (4.50-6.20); RED CELL DISTRIBUTION WIDTH 14.9 % (11.0-15.5); WHITE BLOOD COUNT (AUTO) 9.2 K/uL (4.8-10.8)
[2020-11-03 04:48] LABS: CREATININE 4.1 mg/dL (0.5-1.5); MAGNESIUM 2.1 mg/dL (1.80-2.40); POTASSIUM 4.3 mmol/L (3.5-5.1)
[2020-11-03 08:21] VITALS: BP 111/66
[2020-11-03] MEDS: FUROSEMIDE 40 MG TABLET PO SCH (08:36)
[2020-11-03] MEDS: SEVELAMER HCL 800 MG TABLET PO SCH ×2 (08:36→13:50)
[2020-11-03] MEDS: CARVEDILOL 3.125 MG TABLET PO SCH (08:36)
[2020-11-03] MEDS: ISOSORBIDE MONO 30MG TAB SR PO SCH (08:38)
[2020-11-03] MEDS: PANTOPRAZOLE SODIUM 40 MG TABLET.DR PO SCH (08:38)
[2020-11-03] MEDS: DOXYCYCLINE HYCLATE 100 MG TABLET PO SCH (08:38)
[2020-11-03] MEDS: HYDRALAZINE HCL 10 MG TABLET PO SCH (08:38)
[2020-11-03] MEDS: SODIUM BICARBONATE 650 MG TAB PO SCH ×2 (08:38→13:50)
[2020-11-03 11:18] VITALS: BP 107/59
[2020-11-03 16:25] VITALS: BP 104/52
[2020-11-08] MEDS ORDERED: EPOETIN ALFA 10,000 UNIT/ML VIAL SQ SCH (09:00)
== END 2020-11-03 18:15 | disposition home or self-care (01) | DRG 368 ==
LOC: EDH 18:33 → EDHIP 18:34 → 4AH 10-23 20:43 → 4DH 10-25 11:26 → 4CH 10-26 23:03
PROVIDERS: ADMIT Internal Medicine Infectious Disease; ATTEND Internal Medicine Infectious Disease
PROC: 30233N1 Transfusion of Nonautologous Red Blood Cells into Peripheral Vein, Percutaneous Approach (ICD-10-PCS; 2020-10-21)
PROC: 5A09357 Assistance with Respiratory Ventilation, Less than 24 Consecutive Hours, Continuous Positive Airway Pressure (ICD-10-PCS; 2020-10-23)
PROC: 5A0935A Assistance with Respiratory Ventilation, Less than 24 Consecutive Hours, High Flow/Velocity Cannula (ICD-10-PCS; 2020-10-24)
PROC: 06H03DZ Insertion of Intraluminal Device into Inferior Vena Cava, Percutaneous Approach (ICD-10-PCS; principal; 2020-10-25)
PROC: B519YZZ Fluoroscopy of Inferior Vena Cava using Other Contrast (ICD-10-PCS; 2020-10-25)
PROC: 5A0935A Assistance with Respiratory Ventilation, Less than 24 Consecutive Hours, High Flow/Velocity Cannula (ICD-10-PCS; 2020-10-25)
PROC: 0DJ08ZZ Inspection of Upper Intestinal Tract, Via Natural or Artificial Opening Endoscopic (ICD-10-PCS; 2020-10-25)
PROC: 0DJD8ZZ Inspection of Lower Intestinal Tract, Via Natural or Artificial Opening Endoscopic (ICD-10-PCS; 2020-10-27)
PROC: 0TB13ZX Excision of Left Kidney, Percutaneous Approach, Diagnostic (ICD-10-PCS; 2020-11-02)
DX: K21.01 Gastro-esophageal reflux disease with esophagitis, with bleeding (principal); K29.01 Acute gastritis with bleeding; J15.9 Unspecified bacterial pneumonia; J96.01 Acute respiratory failure with hypoxia; I50.43 Acute on chronic combined systolic (congestive) and diastolic (congestive) heart failure; N18.6 End stage renal disease; I82.413 Acute embolism and thrombosis of femoral vein, bilateral; I13.2 Hypertensive heart and chronic kidney disease with heart failure and with stage 5 chronic kidney disease, or end stage renal disease; N17.9 Acute kidney failure, unspecified; N39.0 Urinary tract infection, site not specified; D62 Acute posthemorrhagic anemia; E87.2 Acidosis; R04.2 Hemoptysis; E46 Unspecified protein-calorie malnutrition; I42.0 Dilated cardiomyopathy; I82.431 Acute embolism and thrombosis of right popliteal vein; E11.22 Type 2 diabetes mellitus with diabetic chronic kidney disease; I34.0 Nonrheumatic mitral (valve) insufficiency; E87.5 Hyperkalemia; I27.20 Pulmonary hypertension, unspecified; Z20.822 Contact with and (suspected) exposure to COVID-19; E66.9 Obesity, unspecified; R63.4 Abnormal weight loss; R53.81 Other malaise; K64.1 Second degree hemorrhoids; Z91.19 Patient's noncompliance with other medical treatment and regimen; Z79.899 Other long term (current) drug therapy; Z79.01 Long term (current) use of anticoagulants
CPT/HCPCS: 36415; 36600; 37191; 43235; 45378; 50200; 71045; 71250; 76770; 76942; 78452; 78580; 80048; 80053; 80061; 81001; 81241; 82270; 82435; 82550; 82570; 82575; 82728; 82803; 82947; 82948; 83036; 83540; 83550; 83605; 83735; 83874; 83880; 84100; 84132; 84145; 84156; 84165; 84295; 84443; 84484; 85014; 85018; 85025; 85027; 85300; 85303; 85306; 85378; 85610; 85651; 85730; 85732; 86038; 86140; 86160; 86215; 86235; 86255; 86431; 86850; 86900; 86901; 86922; 86923; 87040; 87071; 87077; 87088; 87186; 87205; 87426; 93005; 93017; 93306; 93356; 93970; 94640; 94660; 94664; 96374; 97039; 99152; 99153; A4344; A4606; A9500; A9540; C1769; C9113; G0378; J0696; J1644; J2060; J2250; J2543; J2704; J2785; J2920; J2930; J3010; J3370; J3490; J7030; J7050; J7060; J7070; P9016; Q9967; U0003